=== PATIENT | female | born 2000 | race Asian ===

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

== ENCOUNTER 2018-01-09 17:54 | Emergency (ER) | payer OTHER, SELFPAY ==
[2018-01-09 17:56] VITALS: BP 115/72; PULSE 83; RESP 16; TEMP 36.1; O2SAT 99; BMI 21.2
[2018-01-09 19:41] LABS: Hematocrit 40.2 % (37-47); Hemoglobin 12.8 g/dl (12.0-15.0); Mean Corp Hgb Conc 31.8 g/gl (32-36); Mean Corpuscular Hgb 27.1 pg (27.0-32.0); Mean Corpuscular Volume 85.2 fL (81-99); Mean Platelet Vol. 9.7 fl (6.2-12.0); Platelet Count 341 K/mm3 (150-450); RBC Distribution Width CV 13.5 % (11.6-14.6); RBC Distribution Width SD 42.2 fl (35.1-43.9); Red Blood Count 4.72 M/mm3 (4.2-5.4); Scan Indicated on CBC? Y/N NO; White Blood Count 11.9 K/mm3 (4.4-11.0)
[2018-01-09 20:21] VITALS: RESP 12
[2018-01-09 20:48] LABS: Pregnancy, Serum, hCG Quali. NEGATIVE Negative (0-9 Nonpreg)
--- NOTE | 2018-01-09 22:00 | ED.VISSUMM ---
- ER Visit Summary Date of Service: 01/09/18 Chief Complaint: Last menses greater than 1 month ago, bilateral inguinal pain and abnormal vaginal bleeding with clots History of Present Illness: The patient is a 17 F who is a AB 1 female who presents with abnormal vaginal bleeding, bilateral inguinal lower abdominal pain that she describes as cramps. She states her last menses was greater than a month ago. She performed a urine test 1-2 weeks ago which was negative. She does not know blood type. She denies nausea, vomiting diarrhea. She does complain of frequency and urgency. She also reports morning sickness. Please see T-sheet for further detail. Physical Examination: Vital signs noted and normal. HEENT exam unremarkable. Heart is regular without murmur, gallop or rub. Lungs are clear auscultation. Abdomen is remarkable for bilateral inguinal pain. No CVA tenderness noted. Attempt to perform speculum exam was unsuccessful because patient complained of pain soon as the speculum was placed at the introitus. Digital exam was also unsuccessful. Patient reports difficulty with pelvic exam in the past as well. This is not abnormal for her. Test Results: Hemoglobin 12.8. [place] test negative. 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 A pelvic ultrasound was not ordered since she is not able to tolerate introduction of a speculum or single digit to perform examination. Since H&H is normal (is negative she can follow-up with her entry level account executive. Treatment Plan: Outpatient follow-up Disposition: Discharge Impression: Bilateral lower abdominal pain with vaginal bleeding This note was generated with [employer] dictation software. It may contain incorrect words, spelling, and punctuation that were not noted in review of the chart prior to signing ED Disposition - Plan for ED Patient: Disposition: Home or Assisted Living Chief Complaint: Vag Bleeding Instructions: ED Bleed Irregular Vaginal Referrals: Matteo De Los Santos MD [Primary Care Provider] - As Needed Evi Posada MD [STAFF PHYSICIAN] - 3-5 Days
--- NOTE | 2018-01-09 22:05 | ED.DCSUM_ITS ---
- ER Visit Summary Date of Service: 01/09/18 Chief Complaint: Last menses greater than 1 month ago, bilateral inguinal pain and abnormal vaginal bleeding with clots History of Present Illness: The patient is a 17 F who is a AB 1 female who presents with abnormal vaginal bleeding, bilateral inguinal lower abdominal pain that she describes as cramps. She states her last menses was greater than a month ago. She performed a urine test 1-2 weeks ago which was negative. She does not know blood type. She denies nausea, vomiting diarrhea. She does complain of frequency and urgency. She also reports morning sickness. Please see T-sheet for further detail. Physical Examination: Vital signs noted and normal. HEENT exam unremarkable. Heart is regular without murmur, gallop or rub. Lungs are clear auscultation. Abdomen is remarkable for bilateral inguinal pain. No CVA tenderness noted. Attempt to perform speculum exam was unsuccessful because patient complained of pain soon as the speculum was placed at the introitus. Digital exam was also unsuccessful. Patient reports difficulty with pelvic exam in the past as well. This is not abnormal for her. Test Results: Hemoglobin 12.8. [place] test negative. 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 A pelvic ultrasound was not ordered since she is not able to tolerate introduction of a speculum or single digit to perform examination. Since H&H is normal (is negative she can follow-up with her supervisor park workers. Treatment Plan: Outpatient follow-up Disposition: Discharge Impression: Bilateral lower abdominal pain with vaginal bleeding This note was generated with [employer] dictation software. It may contain incorrect words, spelling, and punctuation that were not noted in review of the chart prior to signing ED Disposition - Plan for ED Patient: Disposition: Home or Assisted Living Chief Complaint: Vag Bleeding Instructions: ED Bleed Irregular Vaginal Referrals: Matteo De Los Santos MD [Primary Care Provider] - As Needed Evi Posada MD [STAFF PHYSICIAN] - 3-5 Days
[2018-01-09 22:23] VITALS: RESP 10
== END 2018-01-09 22:23 | disposition home or self-care (01) ==
PROVIDERS: Emergency Provider Emergency Medicine; Family Provider Pediatrics; PCP Pediatrics
DX: N93.9 Abnormal uterine and vaginal bleeding, unspecified (principal); R10.32 Left lower quadrant pain; R10.31 Right lower quadrant pain; R39.15 Urgency of urination; R35.0 Frequency of micturition; R11.0 Nausea
CPT/HCPCS: 84703; 85027; 99283; A4216

== ENCOUNTER 2018-04-26 01:39 | Emergency (ER) | payer OTHER, SELFPAY ==
[2018-04-26 01:40] VITALS: BP 131/97; PULSE 85; RESP 20; TEMP 35.9; O2SAT 100; BMI 23.1
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
--- NOTE | 2018-04-26 02:05 | ED.DEP ---
ED Disposition - Plan for ED Patient: Instructions: ED Alcohol Intoxication Referrals: Matteo De Los Santos MD [Primary Care Provider] -
--- NOTE | 2018-04-26 02:46 | ED.RN ---
PT to be discharged with responsible green party or sleep here. PT requested for [employer] to be called for ride back to [facility]. Peggy at [facility] called. I personally spoke with pts Mom on pts phone to update her on tonights events. PT very tearful but cooperative.
== END 2018-04-26 02:49 | disposition home or self-care (01) ==
LOC: ED 02:04
PROVIDERS: Emergency Provider Emergency Medicine; Family Provider Pediatrics; PCP Pediatrics
DX: F10.129 Alcohol abuse with intoxication, unspecified (principal)
CPT/HCPCS: 99284